=== PATIENT | female | born 1975 | race Caucasian/White ===

== ENCOUNTER 2016-10-15 19:11 | Emergency (ER) | payer OTHER ==
[~2016-10-15] VITALS: Ht 160 cm; Wt 110.5 kg
[~2016-10-15 19:11] MED LIST: ADV250INH IH; ALBU8.5H2 INHALATION; CALC600T12 PO; CETI10TA65 PO; CHOL5000 PO; CITA20TA11 PO; CYAN10008 PO; DILT240C51 PO; FERR47.57 PO; FOLI200T12 PO; HYDR25TA4 PO; INUL2TAB8 PO; LEVA0.316 IH; LIP40 PO; LORA2TAB PO; MULT1CAP33 PO; SENN1TAB90 PO
[2016-10-15 19:46] VITALS: BP 155/113; PULSE 91; RESP 16; O2SAT 98
--- NOTE | 2016-10-15 21:58 | ED.REPORT ---
HPI-General Illness Date of Service Oct 15, 2016 ED Provider: Raymundo Jacinto MD Pt is a 41 y.o. female with a hx of allergy induced asthma who presents to the ED c/o SOB onset yesterday. Associated wheezing and cough. Pt states that upon onset of her sx yesterdays she took a Benadryl and this morning she took one of her allergy medications. Neither provided relief for her SOB. She also states that she has not been able to refill her rescue inhaler. She denies associated fever, chills, diaphoresis, vomiting, earache, and congestion. Nursing Notes Stated Complaint: ASTHMA ATTACK Chief Complaint: Respiratory Distress Nursing Notes Reviewed: Yes Allergies: Coded Allergies: naproxen (Verified Allergy, Intermediate, hives, 10/15/16) codeine (Verified Adverse Reaction, Mild, stomach hurts, 10/15/16) morphine (Verified Adverse Reaction, Mild, nausea and vomiting, 10/15/16) probenecid (Verified Adverse Reaction, Mild, nausea and vomiting, 10/15/16) Scheduled Atorvastatin (Lipitor) 40 Mg Tablet 40 MG PO QPM Beclomethasone Dipropionate (Qvar) 8.7 Gm Aer.w.adap 1 PUFF INHALATION BID Calcium Carbonate (Calcium) 600 Mg Tablet 1,200 MG PO QAM Cetirizine Chew (Zyrtec Chew) 10 Mg Chew 20 MG PO QAM Cholecalciferol (Vitamin D3) (Vitamin D3) 5,000 Unit Capsule 5,000 UNIT PO QAM Citalopram (Citalopram) 20 Mg Tablet 30 MG PO QPM Cyanocobalamin (Vitamin B-12) (Vitamin B-12) 1,000 Mcg Tablet 1,000 MCG PO WEEKLY SUNDAYS Diltiazem ER (Cartia XT) 240 Mg Cap.er.24h 240 MG PO QAM Ferrous Sulfate (Slow Release Iron) 47.5 Mg Tablet.er 45 MG PO QPM Folic Acid/Multivit-Minerals (Women's Multivitamin Gummies) 200 Mcg Tab.chew 200 MCG PO QAM Hydrochlorothiazide (Hydrochlorothiazide) 25 Mg Tablet 25 MG PO QAM Inulin (Fiber Gummies) 2 Gram Tab.chew 2 GM PO QAM Multivitamin (Multivitamins) 1 Each Capsule 1 EACH PO QAM Prednisone (PredniSONE) 20 Mg Tablet 60 MG PO DAILY Sennosides/Docusate Sodium (Senna-Docusate Sodium Tablet) 1 Each Tablet 2 EACH PO QPM Scheduled PRN Albuterol HFA (Proair HFA) 8.5 Gm Hfa.aer.ad 2 PUFFS INHALATION Q4H PRN PRN For Shortness of Breath Fluticasone/Salmeterol (Advair 250-50 Diskus) 60 Puff/Inh Disk 1 PUFF IH BID PRN PRN asthma attack Levalbuterol HCl (Xopenex) 0.31 Mg/3 Ml Vial.neb 0.31 MG IH QID PRN PRN For Shortness of Breath Lorazepam (Lorazepam) 2 Mg Tablet 10 MG PO DIRECTED PRN PRN jaw spasms General Time Seen by MD: 21:57 Chief Complaint Other (Shortness of breath) Hx Obtained From: Patient Arrived By: Walk-in Sudden in Onset?: Yes Onset Occurred: Yesterday Symptom Duration: Since onset Severity: Current: No pain currently Past Medical History Past Medical History High Cholesterol Anxiety Allergy induced asthma Reports: Hypertension Past Surgical History Reports: Gastric bypass Family History Mother and great grandfather [place] by age 45 Grandmother on father's side heart disease Smoking History Never Smoker Social History Alcohol Use: Denies alcohol use Drug Use: Denies drug use Other Social History: Good social support, Ambulatory Status Independent Review of Systems Full Review of Systems Constitutional: Denies: Chills, Fever Ears / Nose / Throat: Denies: Earache bilateral, Nasal congestion Respiratory: Reports: Non-productive cough, Shortness of breath, Wheezing GI: Denies: Vomiting Skin: Denies Diaphoresis Complete sys rev & neg: except as marked. Physical Exam Vital Signs Vital Signs Date Time Temp Pulse Resp B/P Pulse Ox O2 Delivery O2 Flow Rate FiO2 10/15/16 23:09 95 20 100 Room Air 10/15/16 19:46 36.5 91 16 155/113 98 Room Air Initial VS: Reviewed Head / Eyes: Atraumatic, Normocephalic Extremities: Vascular intact, Neuro intact Skin: Warm, Dry, No cyanosis Neurologic: Alert, Oriented, Nonfocal Psychiatric: Mood/affect normal, Behavior normal, Normal thought content General/Constitutional: Awake, Alert, No acute distress, Well appearing, Well developed, Well hydrated, Well nourished, Not toxic appearing Appearance / Presentation: Positive: Obese ENT: Atraumatic, Airway patent, Mucous membranes moist, Pharynx NL Respiratory / Chest: Atraumatic, Breath sounds NL, No respiratory distress Bronchospastic cough with deep breath Cardiovascular: Heart rate NL, Regular rhythm, Heart sounds NL, Peripheral circulation NL Abdomen: Atraumatic, Soft, Non-tender, No distention Re-Eval/Medical Decision Med Decision/Clinical Course 41-year-old known asthmatic presents out of her albuterol with a cold-induced exacerbation. Brief steroid course advised, and she claims to require a taper reason for very short courses. She was provided with a brief course and taper. Provided also with Qvar to begin for maintenance after, and with the replacement albuterol puffer and spacer. Discharged in stable condition. Source of Hx: Old records Time of Eval: 22:04 Re-Evaluation/Progress Note: Physical exam performed. Discussed plan for discharge, pt understands and agrees with plan. Discharge & Departure Shift Change Sign-Out Response to Therapy: Improved Primary Impression: Acute asthma exacerbation Asthma severity: moderate persistent Qualified Code: J45.41 - Moderate persistent asthma with (acute) exacerbation Disposition: Home Discharge Condition All VS Reviewed: Yes Condition: Improved Additional Instructions: Resume your albuterol two puffs every four hours with spacer as needed. Begin Qvar two puffs twice daily for a week, then reduced to one puff twice daily. Use the spacer for that puffer also. Prednisone three tabs daily for two days, then two tabs daily for two days, then one tab daily for two days then stop. Referrals: Vita Pollard (PCP) David Attestation Portions of this note were transcribed by Joyce Umana. I, Dr. Jacinto personally performed the history, physical exam and medical decision-making; I reviewed and confirmed the accuracy of the information in the transcribed note. Signed by: David Mora, 10/15/16 and 2211. copies to: Vita Pollard Christopher W MD Oct 15, 2016 21:58 JOYCE UMANA Oct 15, 2016 22:04
[2016-10-15] MEDS ORDERED: _Albuterol-HFA 60 Puff Inhaler INHALATION PRN (22:05)
[2016-10-15] MEDS ORDERED: PRE20 PO (22:07)
[2016-10-15] MEDS ORDERED: BECL8.7A6 INHALATION (22:07)
[2016-10-15] MEDS ORDERED: Dexamethasone 20 mg/2 mL Oral Solution PO ONE (22:10)
[2016-10-15 23:09] VITALS: PULSE 95; RESP 20; O2SAT 100
== END 2016-10-15 23:11 | disposition home or self-care (01) ==
LOC: SED 19:11
DX: J45.41 Moderate persistent asthma with (acute) exacerbation (principal); E78.00 Pure hypercholesterolemia, unspecified; I10 Essential (primary) hypertension; Z98.84 Bariatric surgery status; Z79.52 Long term (current) use of systemic steroids; Z79.51 Long term (current) use of inhaled steroids; Z88.8 Allergy status to other drugs, medicaments and biological substances; Z88.5 Allergy status to narcotic agent

== ENCOUNTER 2016-12-15 17:35 | Emergency (ER) | payer OTHER ==
[~2016-12-15] VITALS: Ht 160 cm; Wt 112.7 kg
[~2016-12-15 17:35] MED LIST changes: +BECL8.7A6 INHALATION; +PRE20 PO
[2016-12-15 17:39] VITALS: PULSE 103; RESP 18; O2SAT 100
--- NOTE | 2016-12-15 18:08 | ED.REPORT ---
HPI-Abd Pain F 40 and Over Date of Service December 15, 2016 ED Provider: Santiago Dewitt DO A 41 year old female with a history of anxiety, kidney stones, high cholesterol , hypertension and gastric bypass presents to the ED complaining of diarrhea. The pt has been experiencing this diarrhea intermittently for two weeks, and noticed that the stool recently became bloody. This has been accompanied by fatigue and mild abdominal pain. The pt has not yet seen her primary care physician for these symptoms. She denies recent antibiotic use as well as any history of ulcerative colitis or Crohn's disease. She also denies recent exposure to other sick individuals or sick pets. Nursing Notes Stated Complaint: ABDOMINAL DISCOMFORT,DIARRHEA,RECTAL BLEEDING Chief Complaint: Female Abdominal Pain Nursing Notes Reviewed: Yes Allergies: Coded Allergies: naproxen (Verified Allergy, Intermediate, hives, 10/15/16) codeine (Verified Adverse Reaction, Mild, stomach hurts, 10/15/16) morphine (Verified Adverse Reaction, Mild, nausea and vomiting, 10/15/16) probenecid (Verified Adverse Reaction, Mild, nausea and vomiting, 10/15/16) Scheduled Atorvastatin (Lipitor) 40 Mg Tablet 40 MG PO QPM Beclomethasone Dipropionate (Qvar) 8.7 Gm Aer.w.adap 1 PUFF INHALATION BID Calcium Carbonate (Calcium) 600 Mg Tablet 1,200 MG PO QAM Cetirizine Chew (Zyrtec Chew) 10 Mg Chew 20 MG PO QAM Cholecalciferol (Vitamin D3) (Vitamin D3) 5,000 Unit Capsule 5,000 UNIT PO QAM Citalopram (Citalopram) 20 Mg Tablet 30 MG PO QPM Cyanocobalamin (Vitamin B-12) (Vitamin B-12) 1,000 Mcg Tablet 1,000 MCG PO WEEKLY SUNDAYS Diltiazem ER (Cartia XT) 240 Mg Cap.er.24h 240 MG PO QAM Ferrous Sulfate (Slow Release Iron) 47.5 Mg Tablet.er 45 MG PO QPM Folic Acid/Multivit-Minerals (Women's Multivitamin Gummies) 200 Mcg Tab.chew 200 MCG PO QAM Hydrochlorothiazide (Hydrochlorothiazide) 25 Mg Tablet 25 MG PO QAM Inulin (Fiber Gummies) 2 Gram Tab.chew 2 GM PO QAM Multivitamin (Multivitamins) 1 Each Capsule 1 EACH PO QAM Prednisone (PredniSONE) 20 Mg Tablet 60 MG PO DAILY Sennosides/Docusate Sodium (Senna-Docusate Sodium Tablet) 1 Each Tablet 2 EACH PO QPM Scheduled PRN Albuterol HFA (Proair HFA) 8.5 Gm Hfa.aer.ad 2 PUFFS INHALATION Q4H PRN PRN For Shortness of Breath Fluticasone/Salmeterol (Advair 250-50 Diskus) 60 Puff/Inh Disk 1 PUFF IH BID PRN PRN asthma attack Levalbuterol HCl (Xopenex) 0.31 Mg/3 Ml Vial.neb 0.31 MG IH QID PRN PRN For Shortness of Breath Lorazepam (Lorazepam) 2 Mg Tablet 10 MG PO DIRECTED PRN PRN jaw spasms General Time Seen by MD: 18:07 Chief Complaint Other (Diarrhea) Hx Obtained From: Patient Arrived By: Walk-in Sudden in Onset?: No Onset Occurred: More than a week ago... Symptom Duration: Intermittent Recent Healthcare: No recent hospitalization, Recent doctor visit Similar Sx Previous: No Past Medical History Past Medical History High Cholesterol Anxiety Allergy induced asthma Kidney stones Reports: Hypertension Past Surgical History Reports: Cholecystectomy Reports: Gastric bypass Family History Mother and great grandfather [place] by age 45 Grandmother on father's side heart disease Smoking History Never Smoker Social History Alcohol Use: Denies alcohol use Drug Use: Denies drug use Other Social History: Good social support, Ambulatory Status Independent Review of Systems rectal bleeding Constitutional: Reports: Fatigue, Denies: Fever Respiratory: Denies: Non-productive cough, Shortness of breath Cardiovascular: Denies: Chest pain GI: Reports: Abdominal pain, Diarrhea Musculoskeletal: Denies: Back pain Complete sys rev & neg: except as marked. Physical Exam Vital Signs Vital Signs (First) Date Time Temp Pulse Resp B/P Pulse Ox O2 Delivery O2 Flow Rate FiO2 12/15/16 17:39 36.8 103 18 100 Room Air 12/15/16 18:09 138/64 Initial VS: Reviewed General/Constitutional: Awake, Alert Respiratory / Chest: Atraumatic, Breath sounds NL, Breath sounds = bilat, No respiratory distress Cardiovascular: Heart rate NL, Regular rhythm, Heart sounds NL Abdomen: Atraumatic, Soft mild diffuse lower abdominal tenderness Back: Atraumatic, Full range of motion Head / Eyes: Atraumatic, Normocephalic, PERRL, EOMI ENT: Atraumatic, Airway patent, Mucous membranes moist Skin: Atraumatic, Color NL, No rash, Warm, Dry Neurologic: Oriented X3, Speech NL, No motor deficits, No sensory deficits Neck: Atraumatic, Supple, Full range of motion Upper Extremity / MS: Atraumatic, Full range of motion Lower Extremity / Pelvis / MS: Atraumatic, Full range of motion Psychiatric: Affect NL, Mood NL Interpretation & Diagnostics Lab Results Interpretation Result Diagram: 12/15/16 1825 12/15/16 1825 Test 12/15/16 18:25 12/15/16 19:06 White Blood Count 9.2th/mm3 (3.8-10.1) Red Blood Count 4.59mil/mm3 (3.90-5.20) Hemoglobin 12.6g/dL (12.0-15.6) Hematocrit 39.8% (35.0-46.0) Mean Corpuscular Volume 86.7fL (81-100) Mean Corpuscular Hemoglobin 27.5pg (27.0-35.0) Mean Corpuscular Hemoglobin Concent 31.7% (32.0-37.0) Red Cell Distribution Width 14.5% (12.3-15.4) Platelet Count 309bil/L (150-400) Neutrophils (%) (Auto) 57.2% (40-74) Lymphocytes (%) (Auto) 31.7% (14-46) Monocytes (%) (Auto) 8.5% (4-12) Eosinophils (%) (Auto) 2.0% (0-5) Basophils (%) (Auto) 0.5% (0-3) Hold Purple Top Tube Received (Received) Hold Blue Top Tube Received (Received) Sodium Level 138mEq/L (134-144) Potassium Level 3.6mEq/L (3.5-5.2) Chloride Level 102mEq/L (97-108) Carbon Dioxide Level 23mmol/L (18-29) Blood Urea Nitrogen 14mg/dL (6-24) Creatinine 0.78mg/dL (0.57-1.00) Estimat Glomerular Filtration Rate 115mL/min (>59) Glucose Level 69mg/dL (60-99) Lactic Acid Level 1.1mmol/L (0.4-2.0) Calcium Level 9.5mg/dL (8.5-10.1) Magnesium Level 2.1mg/dL (1.6-2.6) Iron Level 38ug/dL (35-150) Total Bilirubin 0.2mg/dL (0.0-1.2) Aspartate Amino Transf (AST/SGOT) 24U/L (0-50) Alanine Aminotransferase (ALT/SGPT) 23U/L (0-32) Alkaline Phosphatase 108U/L (25-150) Total Protein 7.3g/dL (6.4-8.4) Albumin 3.8g/dL (3.4-5.0) Lipase 43U/L (13-60) Thyroid Stimulating Hormone (TSH) 2.360uIU/mL (0.450-4.500) Hold [place] Top Tube Received (Received) Hold Han Top Tube Received (Received) Pulse Oximetry Interpretation Pulse Oximetry Interpretation: 100% on room air Pulse Oximetry: Pulse Ox normal Re-Eval/Medical Decision Source of Hx: Old records Re-Evaluation/Progress : Time of Eval: 20:49 Patient Status: Condition improved Re-Evaluation/Progress Note: Pt rechecked, who is feeling significantly better. The diagnosis and plan for discharge are discussed. The pt understands and agrees with the plan. All questions are addressed at this time. Counseled Regarding: Diagnosis, Lab results, Need for follow-up, When/why to return to ED Discharge & Departure Primary Impression: Gastroenteritis Additional Impression: Abdominal pain Abdominal location: generalized Qualified Code: R10.84 - Generalized abdominal pain Disposition: Home Discharge Condition All VS Reviewed: Yes Condition: Stable Patient Instructions: Acute Abdominal Pain (ED), Gastroenteritis (ED) Additional Instructions: The CAT scan was reassuring. Laboratory work is reassuring. I do recommend that you bring back a stool sample for testing. Clear liquid diet. Follow up with your primary care next week. Return if any problems or any new or worsening symptoms. I suspect that you may have a viral infection but follow- up is essential. Take 1-2 [place] every 6 hours as needed for the abdominal cramping. Do not drink, drive, or consume acetaminophen while taking the [place]. Take 1 Zofran every hours for nausea. Return if any problems or any new or worsening symptoms. Referrals: Vita Pollard (PCP) David Attestation Portions of this note were transcribed by Theron Osorio. I, Dr. Dewitt personally performed the history, physical exam and medical decision-making; I reviewed and confirmed the accuracy of the information in the transcribed note. Signed by: David Myles, 12/15/16 and [id number]. copies to: Vita Pollard Todd P DO December 15, 2016 18:08 THERON OSORIO December 15, 2016 18:44
[2016-12-15 18:09] VITALS: BP 138/64
[2016-12-15] MEDS ORDERED: 0.9% Sodium Chloride 1,000 ML IV ONE (18:40)
[2016-12-15 19:00] LABS: BASOPHILS % (AUTO) 0.5 % (0-3); MONOCYTES % (AUTO) 8.5 % (4-12); Mean Corpuscular Hemoglobin 27.5 pg (27.0-35.0); Mean Corpuscular Volume 86.7 fL (81-100); NEUTROPHILS % (AUTO) 57.2 % (40-74); Platelet Count 309 bil/L (150-400)
[2016-12-15 19:17] LABS: Magnesium 2.1 mg/dL (1.6-2.6)
--- NOTE | 2016-12-15 19:57 | DRSVH ---
PROCEDURE: CT ABDOMEN AND PELVIS WITH CONTRAST ([id number]) INDICATIONS: RLQ pain, diarrhea TECHNIQUE: After the administration of intravenous contrast, 5 mm thick sections acquired from the diaphragm to the symphysis. 5 mm coronal and sagittal reformats were acquired. For radiation dose reduction, the following was used: automated exposure control, adjustment of mA and/or kV according to patient siz e. COMPARISON: None. FINDINGS: Image quality: Excellent. ABDOMEN: Lung bases: Lung bases are clear. Heart size is normal. Solid organs: Liver and spleen are normal in size and enhancement. Is surgically absent. Biliary s ystem is non dilated. Pancreas enhances normally. No adrenal nodules. Kidneys demonstrate normal s ize and enhancement, without hydronephrosis. Peritoneum and bowel: There are postsurgical changes status post a gastric bypass. Bowel loops demo nstrate normal wall thickness and caliber. The appendix is normal in appearance. No free fluid or a ir. Nodes and vessels: No retroperitoneal or mesenteric adenopathy by size criteria. Aorta and inferior vena cava are normal in size. Miscellaneous: No ventral hernias. PELVIS: Genitourinary: Bladder wall thickness is normal. Miscellaneous: No inguinal hernias or adenopathy. Bones: No suspicious bony lesions. No vertebral body compression fractures. IMPRESSION: 1. No acute intra-abdominal abnormality. Specifically, no evidence of appendicitis. 2. Postsurgical changes status post gastric bypass without evidence of obstruction. Dictated by: Ryan Xavier M.D. on 12/15/2016 at 19:52 Approved by: Ryan Xavier M.D. on 12/15/2016 at 19:55
[2016-12-15] MEDS ORDERED: Ondansetron 2 mg/mL 2 mL Inj IVPUSH PRN (20:50)
[2016-12-15] MEDS ORDERED: _Ondansetron ODT 4 mg Tablet PO PRN (20:55)
[2016-12-15] MEDS ORDERED: _HYDROcodone/APAP 5-325 mg Tablet PO PRN (20:55)
[2016-12-15 21:15] VITALS: BP 143/85; PULSE 67; RESP 16; O2SAT 100
== END 2016-12-15 21:37 | disposition home or self-care (01) ==
LOC: SED 17:35
DX: K52.9 Noninfective gastroenteritis and colitis, unspecified (principal); F41.9 Anxiety disorder, unspecified; I10 Essential (primary) hypertension; E78.00 Pure hypercholesterolemia, unspecified; J45.909 Unspecified asthma, uncomplicated; Z98.84 Bariatric surgery status; Z87.442 Personal history of urinary calculi; Z90.49 Acquired absence of other specified parts of digestive tract; Z79.52 Long term (current) use of systemic steroids; Z79.51 Long term (current) use of inhaled steroids; Z88.5 Allergy status to narcotic agent; Z88.6 Allergy status to analgesic agent; Z88.8 Allergy status to other drugs, medicaments and biological substances
CPT/HCPCS: 36415; 74177; 80053; 82607; 83540; 83605; 83690; 83735; 84443; 85025; 96361; 96374; 99285; J2405; J7030; Q9967

== ENCOUNTER 2017-01-04 18:39 | Emergency (ER) | payer OTHER ==
[~2017-01-04] VITALS: Ht 160 cm; Wt 97.7 kg
[2017-01-04 18:42] VITALS: BP 159/104; PULSE 93; O2SAT 100
[2017-01-04] MEDS ORDERED: Ondansetron 8 mg ODT Tablet PO ONE (18:50)
[2017-01-04] MEDS ORDERED: HYDROmorphone 1 mg/mL Inj IM ONE ×2 (18:50→19:30)
[2017-01-04] MEDS ORDERED: Lidocaine 2% 5 mL Topical Jelly TOPICAL ONE (18:50)
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
[2017-01-04] MEDS ORDERED: oxyCODONE-Acetamin 5-325 mg Tablet PO ONE (19:30)
[2017-01-04] MEDS ORDERED: _oxyCODONE/APAP 5-325 mg Tablet PO PRN (20:40)
[2017-01-04] MEDS ORDERED: Bacitracin Ointment Packet TOPICAL ONE (20:40)
[2017-01-04] MEDS ORDERED: OXYC-407 PO (21:02)
[2017-01-04] MEDS ORDERED: BACI28.4 TP (21:02)
[2017-01-04 21:28] VITALS: BP 170/101; PULSE 88; RESP 20; O2SAT 100
[2017-01-04 22:32] VITALS: BP 183/96; PULSE 94; RESP 21; O2SAT 100
== END 2017-01-04 22:33 | disposition home or self-care (01) ==
LOC: SED 18:39
DX: T23.232A Burn of second degree of multiple left fingers (nail), not including thumb, initial encounter (principal); T20.10XA Burn of first degree of head, face, and neck, unspecified site, initial encounter; T26.00XA Burn of unspecified eyelid and periocular area, initial encounter; T22.132A Burn of first degree of left upper arm, initial encounter; T22.131A Burn of first degree of right upper arm, initial encounter; T31.0 Burns involving less than 10% of body surface; X08.8XXA Exposure to other specified smoke, fire and flames, initial encounter; Y93.G2 Activity, grilling and smoking food; Y92.009 Unspecified place in unspecified non-institutional (private) residence as the place of occurrence of the external cause; Y99.8 Other external cause status; I10 Essential (primary) hypertension; F41.9 Anxiety disorder, unspecified; Z79.899 Other long term (current) drug therapy; Z88.5 Allergy status to narcotic agent; Z88.8 Allergy status to other drugs, medicaments and biological substances
CPT/HCPCS: 96372; 99284; J1170